=== PATIENT | female | born 1945 | race Caucasian/White ===

== ENCOUNTER 2017-09-23 08:47 | Day surgery (SDC) | payer MEDICARE, OTHER ==
[~2017-09-23] VITALS: Ht 144.8 cm; Wt 64.0 kg
[~2017-09-23 08:47] MED LIST: ALBU90OI INH; ALBU90OI61 INH; ANTIFUNGAL30 GM TOP; CETI10 PO; CETI5 PO; DIAZ2 PO; DICL75ER PO; DILT120 PO; DILT240 PO; DIPH50 PO; DOXY100 PO; EPIN.3I IM; FLUT.05NI; FOLI1 PO; Flonase 0.05% N16 GM; Ipratropium Bro30 ML INH; LEVSOD100 PO; LISI5 PO; METR59TL TOP; METTREX2.5 PO; Norco 7.5-3251 EACH PO; OLOP.1OPSO OD; OXYC5 PO; PARO20 PO; PRAV20 PO; PRED5 PO; QVAR7.3 G1 IH; TRAZ50 PO; TRIHYD253B PO; VALA500 PO; Zestril30 MG PO
== END 2017-09-23 12:30 | disposition home or self-care (01) ==
LOC: ORSCMMR 08:47
PROVIDERS: Internal Medicine Gastroenterology
PROC: 0DB98ZX Excision of Duodenum, Via Natural or Artificial Opening Endoscopic, Diagnostic (ICD-10-PCS; principal; 2017-09-23 10:00)
PROC: 0DB48ZX Excision of Esophagogastric Junction, Via Natural or Artificial Opening Endoscopic, Diagnostic (ICD-10-PCS; principal; 2017-09-23 10:00)
PROC: 0DB68ZX Excision of Stomach, Via Natural or Artificial Opening Endoscopic, Diagnostic (ICD-10-PCS; principal; 2017-09-23 10:00)
PROC: 0D758ZZ Dilation of Esophagus, Via Natural or Artificial Opening Endoscopic (ICD-10-PCS; principal; 2017-09-23 10:00)
PROC: 0DB88ZX Excision of Small Intestine, Via Natural or Artificial Opening Endoscopic, Diagnostic (ICD-10-PCS; principal; 2017-09-23 10:00)
PROC: 0DB58ZX Excision of Esophagus, Via Natural or Artificial Opening Endoscopic, Diagnostic (ICD-10-PCS; principal; 2017-09-23 10:00)
DX: R13.14 Dysphagia, pharyngoesophageal phase (principal); K21.9 Gastro-esophageal reflux disease without esophagitis; K22.2 Esophageal obstruction; K44.9 Diaphragmatic hernia without obstruction or gangrene; K29.70 Gastritis, unspecified, without bleeding; K29.80 Duodenitis without bleeding
CPT/HCPCS: 82947; 87070; 87081; 88305; 88342; J7120

== ENCOUNTER → 2018-01-11 | Outpatient (CLI) | payer MEDICARE, OTHER ==
[2018-01-11 16:23] LABS: Albumin, Blood 3.6 g/dL (3.4-5.0); Albumin/Globulin Ratio 0.9 (0.8-1.8); Bilirubin, Total 0.2 mg/dL (0.1-1.0); Bun/Creatinine Ratio 19.8 (12.0-20.0); Calcium, Blood 9.3 mg/dL (8.5-10.1); Creatinine, Blood 1.16 mg/dL (0.40-1.00); Globulin, Blood 4.1 g/dL (2.2-4.0); Potassium, Blood 3.3 mmol/L (3.5-5.5); Total Protein, Blood 7.7 g/dL (6.4-8.2)
== END ==
LOC: LAB EV 15:30 → LAB SHORT 15:30
PROVIDERS: Nurse Practitioner Family
DX: R30.0 Dysuria (principal); R10.11 Right upper quadrant pain
CPT/HCPCS: 80053; 83690; 87086

== ENCOUNTER → 2019-03-19 | Outpatient (CLI) | payer MEDICARE, OTHER | END | disposition home or self-care (01) | LOC: LAB EV 15:41 → LAB SHORT 15:41 | DX: E03.9 Hypothyroidism, unspecified (principal) | CPT/HCPCS: 84443 ==

== ENCOUNTER → 2019-06-07 | Outpatient (CLI) | payer MEDICARE, OTHER ==
[2019-06-08 13:20] LABS: Stool Occult Bld Immuno 1 Negative (NEGATIVE)
== END | disposition home or self-care (01) ==
LOC: LAB SHORT 10:25 → LAB 10:25
PROVIDERS: Nurse Practitioner Family
DX: Z12.11 Encounter for screening for malignant neoplasm of colon (principal)
CPT/HCPCS: G0328

== ENCOUNTER 2021-11-27 09:14 | Day surgery (SDC) | payer MEDICARE, OTHER ==
[~2021-11-27] VITALS: Ht 144.8 cm; Wt 67.9 kg
[2021-11-27] MEDS ORDERED: Aspir 8181 MG PO (10:07)
[2021-11-27] MEDS ORDERED: FAMO20 PO (10:08)
[2021-11-27] MEDS ORDERED: LOSA50 PO (10:09)
[2021-11-27] MEDS ORDERED: ZYRTEC10 M2 PO (10:10)
[2021-11-27] MEDS ORDERED: VIT1CAPS12 (10:10)
[2021-11-27] MEDS ORDERED: FLOVENT HFA12 GM (10:11)
[2021-11-27] MEDS ORDERED: PROBIOTIC1 EA13 PO (10:11)
[2021-11-27] MEDS ORDERED: MELATONIN5 M1 PO (10:11)
[2021-11-27] MEDS ORDERED: MOME.1TO (10:12)
[2021-11-27] MEDS ORDERED: DIAZ2 PO (10:12)
[2021-11-27] MEDS ORDERED: ALPHA LIPOIC A600 MG PO (10:13)
[2021-11-27] MEDS ORDERED: CLOBETASOL EMOL15 G1 (10:13)
--- NOTE | 2021-11-27 10:17 | NUR ---
11/27/21 1017 Noa Ayala AT 1011 PLEDGET AT 1012
== END 2021-11-27 11:16 | disposition home or self-care (01) ==
LOC: ORSCSDS 09:14
PROVIDERS: Ophthalmology
PROC: 08RJ3JZ Replacement of Right Lens with Synthetic Substitute, Percutaneous Approach (ICD-10-PCS; principal; 2021-11-27 10:30)
DX: H25.13 Age-related nuclear cataract, bilateral (principal); Z87.891 Personal history of nicotine dependence; E11.36 Type 2 diabetes mellitus with diabetic cataract; I10 Essential (primary) hypertension; E78.00 Pure hypercholesterolemia, unspecified; J45.909 Unspecified asthma, uncomplicated; F32.A Depression, unspecified; Z86.19 Personal history of other infectious and parasitic diseases; Z79.82 Long term (current) use of aspirin; Z79.899 Other long term (current) drug therapy
CPT/HCPCS: 82947; J2001; J2250; J3010; J3301; J7040; V2632

== ENCOUNTER 2021-12-04 11:16 | Day surgery (SDC) | payer MEDICARE, OTHER ==
[~2021-12-04] VITALS: Ht 144.8 cm; Wt 68.3 kg
[~2021-12-04 11:16] MED LIST changes: +ALPHA LIPOIC A600 MG PO; +Aspir 8181 MG PO; +CLOBETASOL EMOL15 G1; +FAMO20 PO; +FLOVENT HFA12 GM; +LOSA50 PO; +MELATONIN5 M1 PO; +MOME.1TO; +PROBIOTIC1 EA13 PO; +VIT1CAPS12; +ZYRTEC10 M2 PO
--- NOTE | 2021-12-04 11:58 | NUR ---
12/04/21 1158 Noa Ayala CALL LIGHT WITHIN REACH. TETRACAINE AT 1154 IN LEFT EYE AND PLEDGETT AT 1155
== END 2021-12-04 13:45 | disposition home or self-care (01) ==
LOC: ORSCSDS 11:16
PROVIDERS: Ophthalmology
PROC: 08RK3JZ Replacement of Left Lens with Synthetic Substitute, Percutaneous Approach (ICD-10-PCS; principal; 2021-12-04 12:30)
DX: H25.12 Age-related nuclear cataract, left eye (principal); I10 Essential (primary) hypertension; Z87.891 Personal history of nicotine dependence; J45.909 Unspecified asthma, uncomplicated; K21.9 Gastro-esophageal reflux disease without esophagitis; E11.9 Type 2 diabetes mellitus without complications; E03.9 Hypothyroidism, unspecified; Z79.899 Other long term (current) drug therapy; Z79.82 Long term (current) use of aspirin
CPT/HCPCS: 82947; J2001; J2250; J3010; J3301; J7040; V2632

== ENCOUNTER → 2022-03-17 | Outpatient (CLI) | payer MEDICARE, OTHER ==
[2022-03-17 16:21] LABS: Microalb/Creat Ratio UR, Rand Unable to Calculate mg/g (0.000-30.000); Microalbumin, Random Urine <5.000 mg/L (0.000-20.000)
== END | disposition home or self-care (01) ==
LOC: LAB SHORT 09:50
PROVIDERS: Family Medicine
DX: E11.59 Type 2 diabetes mellitus with other circulatory complications (principal)
CPT/HCPCS: 82043; 82570

== ENCOUNTER → 2023-01-12 | Outpatient (CLI) | payer MEDICARE, OTHER | END | disposition home or self-care (01) | LOC: PLD 12:07 → LAB SHORT 12:07 → LAB 12:07 | DX: R23.4 Changes in skin texture (principal); L28.0 Lichen simplex chronicus | CPT/HCPCS: 88305; 88312 ==

== ENCOUNTER → 2023-03-23 | Outpatient (CLI) | payer MEDICARE, OTHER | END | disposition home or self-care (01) | LOC: LAB 09:07 → LAB SHORT 09:07 | DX: L08.0 Pyoderma (principal) | CPT/HCPCS: 87070; 87077; 87186; 87205 ==

== ENCOUNTER → 2023-04-28 | Outpatient (CLI) | payer MEDICARE, OTHER | LOC: LAB SHORT 09:15 → PLD 09:15 | DX: L73.8 Other specified follicular disorders (principal) | CPT/HCPCS: 88305 ==